=== PATIENT | female | born 1960 | race Caucasian/White ===

== ENCOUNTER 2019-08-14 09:30 | Inpatient (IN) | payer MEDICAID ==
[~2019-08-14] VITALS: Ht 162.6 cm; Wt 79.2 kg
[~2019-08-14 09:30] MED LIST: ALPR0.5T PO; BIOT5TAB3 PO; FERR18TA2 PO; HYDR-531 PO; LIDO5DIS21 TOP; METH750T3 PO; MORP-109 PO; MULTTAB61 PO; TRAZ150T79 PO
[2019-08-14] MEDS ORDERED: PREGABALIN 25 MG CAP PO ONE (11:00)
[2019-08-14] MEDS ORDERED: ACETAMINOPHEN IV 1000 MG/100ML (10MG/ML) IV ONE (11:00)
[2019-08-14] MEDS ORDERED: ceFAZolin 1GM/50ML 100 ML IV ONE (11:00)
[2019-08-14] MEDS ORDERED: CELECOXIB 100 MG CAP PO ONE (11:00)
[2019-08-14] MEDS ORDERED: ACETAMINOPHEN IV 100 ML IV ONE (11:05)
[2019-08-14] MEDS ORDERED: MORPHINE SULF(PF) 0.5MG/ML 10ML VIAL ONE ×2 (11:19→13:05)
[2019-08-14] MEDS ORDERED: fentaNYL CITRATE 100 MCG/2 ML VL ONE (11:20)
[2019-08-14] MEDS ORDERED: SODIUM CHLORIDE LOCK 10 ML ONE (11:20)
[2019-08-14] MEDS ORDERED: BUPIVACAINE/DEXTROSE MPF 0.75% 2 ML AMP IT ONE (11:20)
[2019-08-14] MEDS ORDERED: EPINEPHrine HCL 1 MG/1 ML AMP ONE (11:20)
[2019-08-14] MEDS ORDERED: PROPOFOL 10 MG/ML 20 ML IV ONE (11:20)
[2019-08-14] MEDS ORDERED: MIDAZOLAM HCL 1MG/1ML-2 ML VIAL ONE (11:20)
[2019-08-14] MEDS ORDERED: ONDANSETRON HCL 4 MG/2 ML VIAL ONE (11:20)
[2019-08-14] MEDS ORDERED: PREGABALIN CAPSULE 75 MG CAP ONE (11:21)
[2019-08-14] MEDS: ceFAZolin 1GM/50ML 50 ML IV SCH ×2 (12:54→19:02)
[2019-08-14] MEDS ORDERED: TETRACAINE 1% INJ 2 ML VIAL IJ ONE (12:56)
[2019-08-14] MEDS ORDERED: BUPIVACAINE W/ EPINEPH 0.25% INJ 50ML MDV ONE (12:56)
[2019-08-14] MEDS ORDERED: KETOROLAC TROMETH 15 mg/ml 1ML VL ONE (12:58)
[2019-08-14] MEDS ORDERED: VANCOMYCIN HCL 1000 MG VL ONE (12:58)
[2019-08-14] MEDS: TRANEXAMIC ACID 20 ML ONE ×2 (13:54→16:40)
[2019-08-14] MEDS ORDERED: MORPHINE SULF INJ 2 MG/ML SYRINGE 1ML IV PRN (14:45)
[2019-08-14] MEDS ORDERED: ACETAMINOPHEN 325 MG TAB PO PRN (14:45)
[2019-08-14] MEDS ORDERED: NITROGLYCERIN 0.4 MG SL TAB SL PRN (14:45)
[2019-08-14] MEDS ORDERED: NALOXONE HCL 0.4 MG/ML VIAL IV PRN (15:00)
[2019-08-14] MEDS ORDERED: fentaNYL CITRATE 100 MCG/2 ML VL IV PRN (15:00)
[2019-08-14] MEDS ORDERED: HYDROmorphone HCL 2 MG/ML VL IV PRN ×2 (15:00→17:30)
[2019-08-14] MEDS ORDERED: KETOROLAC TROMETH 15 mg/ml 1ML VL IV ONE (15:00)
[2019-08-14] MEDS ORDERED: MORPHINE SULFATE 4 MG/ML SYR/VIAL IV PRN ×2 (15:00→17:30)
[2019-08-14] MEDS ORDERED: diphenhdrAMINE HCL 50 MG/1 ML VL IV PRN (15:00)
[2019-08-14] MEDS ORDERED: ONDANSETRON HCL 4 MG/2 ML VIAL IV PRN ×2 (15:00→17:30)
[2019-08-14] MEDS ORDERED: KETOROLAC TROMETH 15 mg/ml 1ML VL IV PRN (17:00)
[2019-08-14] MEDS ORDERED: traMADol HCL 50 MG TAB PO PRN (17:00)
[2019-08-14] MEDS ORDERED: MIDAZOLAM HCL 1MG/1ML-2 ML VIAL IV PRN (17:30)
[2019-08-14] MEDS ORDERED: ePHEDrine SULFATE 50 MG/ML AMP IV PRN (17:30)
[2019-08-14] MEDS ORDERED: LABETALOL HCL 5 MG/ML 4ML SYRINGE IV PRN (17:30)
[2019-08-14] MEDS: KETOROLAC TROMETH 30 MG/ML 1ML VIAL IV PRN (19:02)
--- NOTE | 2019-08-14 19:10 | NUR ---
Telemetry admit from ER MICH GARNER admitted to Telemetry unit after SBAR received. Patient oriented to Mary Francis, primary RN, unit, room, bed, and unit policies regarding patient care and visiting hours. Patient now on continuous telemetry monitoring, tele box # 50 and telemetry reading on arrival to unit is 84. Patient placed on bedside oxygen, weighed by bedscale and encouraged to call if they need something. All questions and concerns addressed, patient verbalized understanding.Lt knee dressing clean and dry, zahraa wrap on, wound vac on, pt given and educated on the incentive spirometer.
[2019-08-14 19:12] VITALS: BP 134/73
[2019-08-14 20:00] VITALS: BP 130/78
[2019-08-14 21:00] VITALS: BP 113/74
[2019-08-14] MEDS: HYDROmorphone HCL 2 MG/ML VL IV PRN (21:16)
[2019-08-14 22:00] VITALS: BP_SYST 119; BP_SYST 120; BP_DIAS 66; BP_DIAS 69
[2019-08-14] MEDS: DOCUSATE SOD 100 MG CAP PO SCH (22:06)
[2019-08-14] MEDS: oxyCODONE ER 10 MG TAB PO SCH (22:06)
[2019-08-14 23:00] VITALS: BP 106/56
[2019-08-15] VITALS (10 sets, daily range): BP systolic 89–125; BP diastolic 46–72
[2019-08-15] MEDS: ceFAZolin 1GM/50ML 50 ML IV SCH (01:03)
[2019-08-15 05:50] LABS: Basophils # (auto) 0 10 ^3/uL (0-0.2); Basophils % (auto) 0.4 % (0.0-2.0); Eosinophils # (auto) 0 10 ^3/uL (0-0.8); Eosinophils % (auto) 0.4 % (0.0-7.0); Hematocrit 31.7 % (36.0-46.0); Hemoglobin 10.7 g/dL (12.2-16.2); Lymphocytes # (auto) 0.6 10 ^3/uL (0.4-5.4); Lymphocytes % (auto) 7.6 % (10.0-50.0); Mean Corpuscular Hgb Conc. 33.8 g/dL (32.0-36.0); Mean Corpuscular Volume 88.6 fL (80.0-100.0); Monocytes # (auto) 0.8 10 ^3/uL (0-1.3); Monocytes % (auto) 9.7 % (0.0-12.0); Neutrophils # (auto) 6.6 10 ^3/uL (1.6-8.6); Neutrophils % (auto) 81.9 % (37.0-80.0); Platelet Count (auto) 170 10^3/uL (140-450); Red Blood Cells 3.57 10^6/uL (4.0-5.20); Red Cell Distribution Width 13.7 % (11.8-14.3); White Blood Cell 8.1 10^3/uL (4.4-10.8)
[2019-08-15 06:17] LABS: Albumin 2.8 g/dL (3.4-5.0); BUN/Creatinine Ratio 18.9; Bilirubin, Total 0.6 mg/dL (0.2-1.0); Total Protein 5.5 g/dL (6.4-8.2)
[2019-08-15] MEDS: ONDANSETRON HCL 4 MG/2 ML VIAL IV PRN ×2 (06:44→09:22)
--- NOTE | 2019-08-15 07:40 | NUR ---
Opening Shift Note Received report and assumed care of patient. Patient is awake and alert. No signs or symptoms of distress noted. PATIENT COMPLAINING OF 8/10 PAIN. PATIENT WILL BE MEDICATED PER MD ORDERS. Instructed patient on plan of care and to call for assistance as needed. Will continue to monitor.
--- NOTE | 2019-08-15 08:33 | NUR ---
Respiratory note: CONDUCTED A CON POX CHECK TO FIND PT BEING MONITORED AT NURSES STATION WITH POX MONITOR. HR 90, RR 16, SPO2 100 ON RA, BS CLEAR. NO SIGNS OR SYMPTOMS OF RESPIRATORY DISTRESS NOTED AT THIS TIME.
--- NOTE | 2019-08-15 08:42 | NUR ---
PAGED DICKSON FROM [facility] FOR CPM ELECTROPHYSIOLOGY TECHNICIAN. AWAITING CALL BACK
[2019-08-15] MEDS: KETOROLAC TROMETH 30 MG/ML 1ML VIAL IV PRN ×2 (09:22→18:50)
[2019-08-15] MEDS: DOCUSATE SOD 100 MG CAP PO SCH ×2 (10:30→23:10)
[2019-08-15] MEDS: oxyCODONE ER 10 MG TAB PO SCH ×2 (10:30→23:11)
--- NOTE | 2019-08-15 10:35 | NUR ---
Alex catheter dc'd Order to discontinue alex catheter. Alex dc'd with clean technique following deflation of balloon. Patient tolerated well with no complaints of pain. Continue care.
--- NOTE | 2019-08-15 11:10 | NUR ---
PRIMARY RN AND STRUCTURAL MILL SUPERVISOR ATTEMPTED TO LOCATE SPARE CPM MACHINE. SPARE CPM LOCATED IN STORAGE ROOM WITH MISSING SHEEPSKIN MATERIAL. STRUCTURAL MILL SUPERVISOR LOCATED LYNDON FROM PHYSICAL THERAPY AND LYNDON STATED "YES I WILL HELP SET THE SPARE CPM MACHINE UP FOR THE PATIENT."
--- NOTE | 2019-08-15 11:15 | NUR ---
PAGED DICKSON FROM [facility]. AWAITING CALL BACK. UPDATED SENIOR TEST ENGINEER OF SITUATION. PATIENT STATES "THIS IS MY SECOND SURGERY, LAST TIME MY KNEWW ENDED UP GETTING STUCK AT A 70/80 AND IT WAS HORRIBLE."
--- NOTE | 2019-08-15 11:18 | NUR ---
OLGA RN CALLED DICKSON FROM [facility] RE: PATIENT SITUATION. "THIS IS PATIENT SECOND SURGERY DUE TO IMMOBILITY FROM THE LAST SURGERY AND SHE IS IN NEED OF A CPM MACHINE SINCE 08/14/2019 AFTER HER SURGERY." DICKSON RETURNED PHONE CALL AND STATES "THE PATIENTS CPM MACHINE WILL BE HERE LATER TODAY."
[2019-08-15] MEDS: ENOXAPARIN SOD 40 MG/0.4 ML SYRINGE SC SCH (11:34)
[2019-08-15] MEDS: HYDROmorphone HCL 2 MG/ML VL IV PRN ×3 (13:12→20:46)
--- NOTE | 2019-08-15 13:28 | NUR ---
PER LYNDON SUPPLIES FOR EXTRA CPM MACHINE COULD NOT BE LOCATED. PATIENT TO WAIT FOR DELIVERY OF CPM
[2019-08-15] MEDS: HYDROcodone-ACET 5/325MG TAB PO PRN ×2 (15:31→21:11)
[2019-08-16] MEDS: HYDROmorphone HCL 2 MG/ML VL IV PRN ×2 (04:32→20:10)
[2019-08-16 05:00] VITALS: BP 112/57
[2019-08-16] MEDS: KETOROLAC TROMETH 30 MG/ML 1ML VIAL IV PRN (07:17)
--- NOTE | 2019-08-16 07:32 | NUR ---
Opening Shift Note Received report and assumed care of patient. Patient is awake and alert. No signs or symptoms of distress noted. PATIENT COMPLAINING OF 7/10 PAIN. PATIENT WILL BE MEDICATED PER MD ORDERS. Instructed patient on plan of care and to call for assistance as needed. Will continue to monitor.
[2019-08-16 09:00] VITALS: BP 142/80
[2019-08-16] MEDS: ENOXAPARIN SOD 40 MG/0.4 ML SYRINGE SC SCH (09:46)
[2019-08-16] MEDS: DOCUSATE SOD 100 MG CAP PO SCH (09:46)
[2019-08-16] MEDS: oxyCODONE ER 10 MG TAB PO SCH ×3 (09:46→21:44)
[2019-08-16] MEDS ORDERED: HYDROcodone-ACET 10/325MG TAB PO PRN (12:15)
[2019-08-16] MEDS ORDERED: traMADol HCL 50 MG TAB PO PRN ×2 (12:30→12:45)
[2019-08-16] MEDS ORDERED: ACETAMINOPHEN 325 MG TAB PO PRN ×2 (12:45)
--- NOTE | 2019-08-16 16:48 | NUR ---
IV insertion IV access obtained, via clean sterile technique by inserting 22 gauge catheter at RIGHT FOREARM after 2 attempt(s). IV secured properly. No trauma to site. Patient tolerated well. IV removal IV DC'd with clean sterile technique, catheter fully intact. Pressure dressing applied to site. Patient tolerated well.
[2019-08-16 16:54] VITALS: BP 112/66
[2019-08-16 20:00] VITALS: BP 101/60
--- NOTE | 2019-08-16 20:00 | NUR ---
Opening Shift Note Assumed care of patient, awake and alert. No S/S of distress/SOB. Patient is on room air. Respirations even and unlabored. Dressing to left knee is clean, dry, and intact. Instructed on POC and to call for assist PRN, will continue to monitor for changes Q1hr and PRN.
[2019-08-16] MEDS: LACTULOSE 20Gm/30ML SOLN PO PRN (21:45)
[2019-08-16 22:00] VITALS: BP 101/60
[2019-08-16] MEDS ORDERED: SENNA 8.6 MG TAB PO SCH (22:00)
--- NOTE | 2019-08-17 05:30 | NUR ---
KAMAR Woodson, notified regarding patient having new onset of sinus tachycardia (101-120s) and temperature of 99.9 F. New orders received: laboratory orders (CBC, CMP, lactic acid, blood cultures), 1/2 liter NS bolus, and 1 gram Rocephin daily to start now.
[2019-08-17] MEDS ORDERED: SODIUM CHLORIDE 0.9% 500 ML IV ONE (05:45)
[2019-08-17 06:00] VITALS: BP 111/55
[2019-08-17] MEDS: cefTRIAXone 1GM/50ML D5W 50 ML IV SCH ×2 (06:27→08:27)
[2019-08-17] MEDS: oxyCODONE ER 10 MG TAB PO SCH ×2 (06:43→14:30)
--- NOTE | 2019-08-17 07:00 | NUR ---
CLOSING NOTE Patient is on room air. Respirations even and unlabored. Dressing to left knee is clean, dry, and intact. Endorsed to day shift RN regarding pending laboratory results, new onset of sinus tachycardia, and elevation in temperature.
[2019-08-17 07:09] LABS: Basophils # (auto) 0 10 ^3/uL (0-0.2); Basophils % (auto) 0.3 % (0.0-2.0); Eosinophils # (auto) 0.2 10 ^3/uL (0-0.8); Eosinophils % (auto) 2.6 % (0.0-7.0); Hematocrit 28.7 % (36.0-46.0); Hemoglobin 9.8 g/dL (12.2-16.2); Lymphocytes # (auto) 0.7 10 ^3/uL (0.4-5.4); Mean Corpuscular Hemoglobin 30.2 pg (28.0-32.0); Mean Corpuscular Hgb Conc. 34.2 g/dL (32.0-36.0); Mean Corpuscular Volume 88.3 fL (80.0-100.0); Monocytes # (auto) 0.6 10 ^3/uL (0-1.3); Monocytes % (auto) 8.3 % (0.0-12.0); Neutrophils # (auto) 6.1 10 ^3/uL (1.6-8.6); Neutrophils % (auto) 79.8 % (37.0-80.0); Platelet Count (auto) 146 10^3/uL (140-450); Red Blood Cells 3.25 10^6/uL (4.0-5.20); Red Cell Distribution Width 13.7 % (11.8-14.3); White Blood Cell 7.6 10^3/uL (4.4-10.8)
[2019-08-17 07:18] LABS: Albumin 2.4 g/dL (3.4-5.0); BUN/Creatinine Ratio 16.7; Bilirubin, Total 0.5 mg/dL (0.2-1.0); Calcium 8.2 mg/dL (8.5-10.1); Total Protein 5.7 g/dL (6.4-8.2)
[2019-08-17 08:00] VITALS: BP 95/49
[2019-08-17 09:07] VITALS: BP 95/49
[2019-08-17] MEDS: ENOXAPARIN SOD 40 MG/0.4 ML SYRINGE SC SCH (09:29)
[2019-08-17] MEDS: HYDROmorphone HCL 2 MG/ML VL IV PRN ×3 (09:30→16:59)
[2019-08-17] MEDS: LACTULOSE 20Gm/30ML SOLN PO PRN (12:17)
[2019-08-17 12:41] VITALS: BP 108/61
--- NOTE | 2019-08-17 14:15 | NUR ---
DR TRUJILLO BEDSIDE WITH PATIENT
--- NOTE | 2019-08-17 15:19 | NUR ---
LM FOR DR ZHU/JONO MANTILLA TO INFORM THEM OF PATIENTS D/C PER DR TRUJILLO
--- NOTE | 2019-08-17 16:10 | NUR ---
DR BAE AWARE OF PATIENT D/C TODAY AND CLEARED
--- NOTE | 2019-08-17 16:23 | NUR ---
D/C Planning Per SS consult for home health physical therapy, walker and bedside commode. Faxed order to [facility]. Per Ursula with [facility] order has been received and service to start within 24-48hrs upon d/c day. Faxed orders to [facility] requesting authorization for home health. Per Jessica with [facility] authorization for [facility] is [id number]. Placed followed up called to OWEN Royal with [facility]:) regarding walker and bedside commode. Per OWEN Royal order was faxed to and walker will be deliver to bedside and bedside commode will be deliver to patient home. Per OWEN Royal she will follow up with JONAH Garza regarding time of delivery. JONAH Garza was informed of d/c plan.
[2019-08-17 16:49] VITALS: BP 105/62
--- NOTE | 2019-08-17 17:03 | NUR ---
assessment Patient is a 59 year old female who is alert and oriented. Patients cognitive abilities are intact. Prior to admission patient lived home with family and functioned independently. Patient informed me she is able to care for her own ADLs. Per patient she will return home to her prior living arrangements post discharge and family will transport her home. Patient has been admitted for left knee replacement. Patient has no DME at home. Patient will need a fww and home health for PT on discharge. I informed patient she has a right to speak to a social services designee regarding all care. I informed patient she has a right to participate in any and all discharge planning. Patient does not have a POA and advanced directive. I have offered patient information on POA and advanced directives. I informed the patient the advantages and benefits of having an Advanced Directive. Patient verbalized understanding and agreed to discharge plan. Addendum: 08/17/19 at 1708 by Yulia DIAZ Amended: Links added.
--- NOTE | 2019-08-17 18:04 | NUR ---
Discharge instructions given as ordered. Encourage to follow up with PMD as instructed on August 30. All questions and concerns addressed. Patient verbalized understanding. Medication reconciliation form completed and copy given to patient. No home medications in Pharmacy, and patient declined vaccines. FWW delivered bedside and BSC delivered to residence. IV removed with catheter intact and pressure dressing applied. Telemetry unit returned to ICU. Patient taken to vehicle via wheelchair with all personal belongings and CPM, patient accompanied by staff and multiple family members. No distress noted at time of departure.
== END 2019-08-17 18:04 | disposition home health service (06) | DRG 302 ==
LOC: EDSTATUS 09:30 → OVERFLOW 10:00 → TELE-WESTW 18:38
PROVIDERS: ADMIT Orthopaedic Surgery Adult Reconstructive Orthopaedic Surgery; ATTEND Orthopaedic Surgery Adult Reconstructive Orthopaedic Surgery
PROC: 0SRD0J9 Replacement of Left Knee Joint with Synthetic Substitute, Cemented, Open Approach (ICD-10-PCS; 2019-08-14)
PROC: 0SPD0JZ Removal of Synthetic Substitute from Left Knee Joint, Open Approach (ICD-10-PCS; principal; 2019-08-14 12:54)
DX: T84.84XA Pain due to internal orthopedic prosthetic devices, implants and grafts, initial encounter (principal); T84.099A Other mechanical complication of unspecified internal joint prosthesis, initial encounter; G89.4 Chronic pain syndrome; Y83.8 Other surgical procedures as the cause of abnormal reaction of the patient, or of later complication, without mention of misadventure at the time of the procedure; Y92.098 Other place in other non-institutional residence as the place of occurrence of the external cause
CPT/HCPCS: 36415; 71045; 73560; 80053; 83605; 85025; 86850; 86900; 86901; 87040; 94762; 97116; 97163; 97530; C1713; G0378; J0131; J0171; J0690; J0696; J1885; J2250; J2405; J2704